=== PATIENT | male | born 1975 | race Caucasian/White ===

== ENCOUNTER → 2020-09-07 | Outpatient (CLI) | payer OTHER ==
[~2020-09-07] VITALS: Ht 177.8 cm; Wt 73.0 kg
[2020-09-07 13:30] VITALS: BP 150/84; PULSE 72
--- NOTE | 2020-09-07 14:00 | NUR ---
Dr Jernigan talks with pt and then talks with Dr Sawant. Biopsy will be canceled at this time. Pt back to holding area changed clothes and then out to car.
== END ==
LOC: COL.RAD 13:15
DX: R59.0 Localized enlarged lymph nodes (principal); Z85.820 Personal history of malignant melanoma of skin